=== PATIENT | female | born 1965 | race African-American/Black ===

== ENCOUNTER 2018-03-16 01:22 | Observation (INO) ==
--- NOTE | 2018-03-16 07:25 | P.HP ---
History of Present Illness Service: [facility] Adult med Primary Care Physician: UNKNOWN Chief Complaint: chest pain, palpitation History of Present Illness: 52-year-old relatively healthy [facility] female who was transferred over from [place] facility due to hemoglobin of 6.2 and isolated complaint of chest pressure. Patient reports she has been chronically anemic for years due to bleeding fibroids and actually had 2 episodes of bleeding last week. She become somewhat frustrated by this and she felt she is "old enough to be getting over this kind of thing". She reports that she is received blood transfusions on 2 separate occasions in the past for hemoglobin around 5. She denies any increased fatigue surprisingly and the only reason she went to visit the ER in [place] last night was that she was awakened from sleep with what she describes as a very forceful heartbeat. She reports that it was only a single forceful heartbeat but she had some chest pressure for approximately 10 minutes after that and this caused her to be anxious. She was therefore transported by [facility] to the [place] ER facility. She reports that when she became anxious she felt short of breath for very short time but that has resolved. She has had no more chest pressure or chest pain. She has had similar chest pain in the past but has not had any cardiac workup. Her initial set of enzymes and 2 EKGs are unremarkable. My plan would be to give her blood and continue rule out for any cardiac event. She however at this point is somewhat reluctant to take blood as she says she has done well at much lower numbers in the past. I tried to explain that the extra blood may actually help her heart not have to work as hard and prevent her from having any more of the chest pressure/pain episodes. She is still considering whether or not she will accept any additional blood. She reports that she has had no active bleeding over the last 3-4 days. [facility] Patient lives alone, moved to the area approximately 30 years ago from her home country of [place] Works as a massage therapist Denies any use of alcohol tobacco or illicit drugs Has 3 children - Diagnosis (1) Chest pressure (2) Anemia due to blood loss, chronic (3) Fibroid (bleeding) (uterine) Review of Systems Constitutional: Denies anorexia, Denies body ache(s), Denies chills, Denies daytime sleepiness, Denies excessive sweating, Denies fatigue, Denies fever(s), Denies headache(s), Denies increased appetite, Denies lack of energy, Denies malaise, Denies night sweats, Denies weakness, Denies weight gain, Denies weight loss, Denies other Eyes: Denies blind spots, Denies blurry vision, Denies bulging eyes, Denies change in vision, Denies double vision, Denies discharge, Denies dry eyes, Denies floaters, Denies irritation, Denies itchy eyes, Denies loss of vision, Denies pain, Denies requires corrective lenses, Denies sensitivity to light, Denies other Ears, Nose, Mouth, and Throat: Denies abnormal hearing, Denies bleeding gums, Denies bad breath, Denies change in voice, Denies dental pain, Denies difficulty swallowing, Denies dizziness, Denies dry mouth, Denies ear discharge , Denies ear pain, Denies facial pain, Denies headache(s), Denies hearing loss, Denies hoarseness, Denies lip swelling, Denies nosebleed, Denies mouth lesions, Denies mouth pain, Denies nasal congestion, Denies nasal discharge, Denies nasal obstruction, Denies nasal trauma, Denies neck lump, Denies neck pain, Denies nose pain, Denies pain with swallowing, Denies poor balance, Denies post nasal drip, Denies ringing in the ears, Denies sinus pain, Denies sinus pressure , Denies sore throat, Denies throat swelling, Denies tongue swelling, Denies other Cardiovascular: Reports chest pain, Reports chest pain at rest, Reports rapid, pounding, or irregular heartbeat, Reports shortness of breath, Denies chest pain with activity, Denies excessive sweating, Denies fainting, Denies fast heart rate, Denies foot swelling, Denies generalized swelling, Denies irregular heart rhythm, Denies leg pain with activity, Denies leg sores, Denies leg swelling, Denies lightheadedness, Denies radiating jaw, neck or arm pain, Denies shortness of breath with activity, Denies shortness of breath when lying down, Denies shortness of breath causing sudden awakening, Denies slow heart rate, Denies other Respiratory: Reports shortness of breath, Denies change in phlegm color, Denies chest congestion, Denies cough, Denies coughing up blood, Denies excessive phlegm production, Denies pain on inspiration, Denies pain with cough, Denies shortness of breath with activity, Denies snoring, Denies stridor, Denies wheezing, Denies other Gastrointestinal: Denies abdominal pain, Denies belching, Denies black, tarry stools, Denies bloating, Denies bright, red blood in stools, Denies change in bowel habits, Denies constant urge to pass stool, Denies change in stools, Denies coffee ground vomit, Denies constipation, Denies cramping, Denies difficulty swallowing, Denies excessive passing of gas, Denies feeling full early, Denies heartburn, Denies incontinent of stools, Denies loose stools, Denies nausea, Denies pain with swallowing, Denies vomiting, Denies vomiting blood, Denies other Genitourinary: Reports abnormal vaginal bleeding Musculoskeletal: Denies abnormal walking, Denies back pain, Denies body aches, Denies decreased muscle mass, Denies deformity, Denies joint pain, Denies joint swelling, Denies limited joint movement, Denies loss of height, Denies muscle cramps, Denies muscle weakness, Denies neck pain, Denies numbness, Denies radiating pain into limb, Denies stiffness, Denies tingling, Denies other Neurologic: Denies abnormal hearing, Denies abnormal movements, Denies abnormal speech, Denies abnormal walking, Denies behavioral changes, Denies burning sensations, Denies confusion, Denies dizziness, Denies fainting, Denies frequent falls, Denies headache(s), Denies lack of coordination, Denies localized weakness, Denies loss of vision, Denies memory loss, Denies numbness, Denies other visual disturbances, Denies radiating pain, Denies restless legs, Denies convulsions, Denies seizure-like activity, Denies sensory deficit, Denies tingling, Denies tingling/numbness/burning sensations, Denies tremor(s), Denies unsteadiness, Denies weakness, Denies other Psychiatric: Reports anxiety, Denies abnormal sleep pattern, Denies behavioral changes, Denies change in appetite, Denies change in sex drive, Denies confusion , Denies depression, Denies difficulty concentrating, Denies hearing things others do not hear, Denies hopelessness, Denies irritability, Denies lack of enjoyment, Denies memory loss, Denies mood swings, Denies panic attacks, Denies paranoia, Denies seeing things others do not see, Denies sensing things others do not sense, Denies tactile hallucinations, Denies thoughts of hurting/killing others, Denies thoughts of hurting/killing yourself, Denies other PMFSH - History History Provided By: Patient - Medical History Medical History: Medical History (Last Updated 03/16/18 @ 07:19 by Sandro Lares MD, PhD) Fibroid (bleeding) (uterine) - Surgical History Surgical History: Surgical History (Last Updated 03/16/18 @ 07:17 by Sandro Lares MD, PhD) History of bilateral tubal ligation - Family History Family History: Family History (Last Updated 03/16/18 @ 07:19 by Sandro Lares MD, PhD) Mother Hypertension - Tobacco History Second Hand Smoke Exposure: Yes Smoking Status: Never smoker - Alcohol History How Often Do You Have a Drink Containing Alcohol: Never - Substance Use History Substance History: No History of Abuse - Travel History History of Recent Travel: No Medications and Allergies Active Medications: Active Medications Nitroglycerin (Nitrostat Sl) 0.4 mg SL Q5M PRN PRN Reason: CHEST PAIN Sodium Chloride (Ns Flush) 2 ml IV.FLUSH PRN PRN PRN Reason: FLUSH AFTER USING IV ACCESS Sodium Chloride (Ns Flush) 2 ml IV.FLUSH BID REGINA Allergies Allergy/AdvReac Type Severity Reaction Status Date / Time No Known Allergies Allergy Unverified 03/16/18 01:26 Home Medications Medication Instructions Recorded Confirmed Type ferrous sulfate [iron] 325 mg PO BID 03/16/18 03/16/18 History Exam Vital signs: Vital Signs 03/16/18 05:41 Temperature 97.4 F L Pulse Rate 83 Respiratory Rate 20 Blood Pressure 119/68 Pulse Oximetry 99 Narrative: GENERAL: Sleeping, arouses to voice, alert and oriented. Cooperative with exam. SKIN: Warm and dry. HEAD: Atraumatic. Normocephalic. EYES: Pupils equal and round. No scleral icterus. No injection or drainage. ENT: No nasal bleeding or discharge. Mucous membranes pink and moist. NECK: Trachea midline. No JVD. CARDIOVASCULAR: Regular rate and rhythm. Possible soft 1 out of 6 systolic ejection murmur heard along the left sternal border, surprisingly no loud flow murmur appreciated. RESPIRATORY: No accessory muscle use. Clear to auscultation. Breath sounds equal bilaterally. GASTROINTESTINAL: Abdomen soft, non-tender, nondistended. Hepatic and splenic margins not palpable. Lower abdomen noted for an apparent enlarged uterus with firm nodular lesion consistent with reported fibroid. MUSCULOSKELETAL: Extremities without clubbing, cyanosis, or edema. No obvious deformities. NEUROLOGICAL: Awake and alert. No obvious cranial nerve deficits. Motor grossly within normal limits. Five out of 5 muscle strength in the arms and legs. Normal speech. PSYCHIATRIC: Appropriate mood and affect; insight and judgment normal. Caprini VTE Risk Assessment Caprini VTE Risk Assessment: No/Low Risk (score <= 1) Caprini Risk Assessment Model: Point Value = 1 Point Value = 2 Point Value = 3 Point Value = 5 Age 41-60 Minor surgery BMI > 25 kg/m2 Swollen legs Varicose veins or History of unexplained or recurrent spontaneous Oral contraceptives or hormone replacement Sepsis (< 1 month) Serious lung disease, including pneumonia (< 1 month) Abnormal pulmonary function Acute myocardial infarction Congestive heart failure (< 1 month) History of inflammatory bowel disease Medical patient at bed rest Age 61-74 Arthroscopic surgery Major open surgery (> 45 min) Laparoscopic surgery (> 45 min) Malignancy Confined to bed (> 72 hours) Immobilizing plaster cast Central venous access Age >= 75 History of VTE Family history of VTE Factor V Leiden Prothrombin [id number] Lupus anticoagulant Anticardiolipin antibodies Elevated serum homocysteine Heparin-induced thrombocytopenia Other congenital or acquired thrombophilia Stroke (< 1 month) Elective arthroplasty Hip, pelvis, or leg fracture Acute spinal cord injury (< 1 month) Prophylaxis Regimen: Total Risk Factor Score Risk Level Prophylaxis Regimen 0-1 Low Early ambulation 2 Moderate Order ONE of the following: *Sequential Compression Device (SCD) *Heparin 5000 units SQ BID 3-4 Higher Order ONE of the following medications: *Heparin 5000 units SQ TID *Enoxaparin/Lovenox 40 mg SQ daily (WT < 150 kg, CrCl > 30 mL/min) *Enoxaparin/Lovenox 30 mg SQ daily (WT < 150 kg, CrCl > 10-29 mL/min) *Enoxaparin/Lovenox 30 mg SQ BID (WT < 150 kg, CrCl > 30 mL/min) AND/OR *Sequential Compression Device (SCD) 5 or more Highest Order ONE of the following medications: *Heparin 5000 units SQ TID (Preferred with Epidurals) *Enoxaparin/Lovenox 40 mg SQ daily (WT < 150 kg, CrCl > 30 mL/min) *Enoxaparin/Lovenox 30 mg SQ daily (WT < 150 kg, CrCl > 10-29 mL/min) *Enoxaparin/Lovenox 30 mg SQ BID (WT < 150 kg, CrCl > 30 mL/min) AND *Sequential Compression Device (SCD) Assessment and Plan - Assessment (1) Chest pressure Code(s): R07.89 - Other chest pain Status: Acute Plan: Possibly some demand mediated ischemia or possible dysrhythmia given significant anemia. We will continue rule out protocol. Patient is typically quite active and has no exertional dyspnea or chest pain. I have encouraged her to accept at least 1 unit of packed red cells but at this point she is declining any blood transfusion. She will consider based on repeat hemoglobin and symptomatology. I have tried to explain the need for packed red cells in reducing her cardiac workload. Her EKGs and initial troponin are negative. I am hesitant to give her an aspirin or any other anticoagulant given the recent and recurrent bleeding in light of her somewhat atypical presentation. (2) Anemia due to blood loss, chronic Code(s): D50.0 - Iron deficiency anemia secondary to blood loss (chronic) Status: Chronic Plan: As above. Hemoglobin repeat pending. Hopefully she will except transfusion. Continue home iron. (3) Fibroid (bleeding) (uterine) Code(s): D25.9 - Leiomyoma of uterus, unspecified Status: Chronic Plan: Continue with [facility]. She has an appointment April 06. She has not had any bleeding in the last several days per - Plan Code Status: Full Discussed Condition With: Patient, ER provider and patient's friend, Rod who was at bedside
[2018-03-16 07:31] LABS: Hematocrit 22.1 % (35.0-46.0); Hemoglobin 7.2 gm/dL (11.6-15.3)
[2018-03-16 07:45] LABS: Creatine Kinase 127 U/L (26-192)
--- NOTE | 2018-03-16 08:42 | P.PNADD ---
Addendum to Inpatient Note Reason for Addendum: Additional Documentation Additional information: Again spoke with pt and discussed new lab values. She's had no more CP and still refuses PRBCs. Surprisingly her Hb has actually improved from previous. Will cont r/o protocol and check Ad thal stress test. She is agreeable. Spoke with her nurse and advised to be on look out for next cardiac enzymes and EKG. Will perform stress test if enz/ekg's negative.
[2018-03-16 08:51] VITALS: RESP 17
[2018-03-16] MEDS ORDERED: Ferrous Sulfate 325 MG Tablet PO SCH ×3 (09:00→09:39)
[2018-03-16 10:08] LABS: Creatine Kinase 115 U/L (26-192)
[2018-03-16] MEDS ORDERED: Regadenoson Inj 0.4 MG/5 ML Syringe IV.PUSH ONE (14:33)
[2018-03-16 15:14] VITALS: BP 108/67; PULSE 88; TEMP 97; O2SAT 98
--- NOTE | 2018-03-16 15:26 | NM ---
EXAM DATE: 03/16/2018 3:22 PM EDT AGE/SEX: 52 years / Female INDICATIONS:Angina. . Chest pressure. CLINICAL DATA: This is the patient's initial encounter. Patient reports that signs and symptoms have been present for 1 day and indicates a pain score of 4/10. MEDICAL/SURGICAL HISTORY: Anemia. Tubal ligation. COMPARISON: No prior exams available for comparison. DOSE: 8.1 mCi Tc 99m Myoview at rest 25.9 mCi [id number] at stress 0.4 mg Lexiscan STRESS SYMPTOMS: None. EJECTION FRACTION: >70 % TECHNIQUE: The patient underwent pharmacologic stress with infusion of prescribed dose. Continuous ECG tracing was monitored during stress. Gated SPECT imaging was performed after stress and conventi onal SPECT imaging was performed at rest. The examination was performed on a SPECT/CT scanner, both attenuation and non-corrected datasets were reviewed. FINDINGS: The best perfused myocardium is the lateral wall followed by the inferior wall. There is moderate gut activity obscuring the inferior wall. There is no redistribution to suggest stress-induced ischemia. I see no fixed defects. The ejection fraction greater than 70%. RISK CATEGORY: Low (<1% Annual Motality Rate) CONCLUSION: 1. Negative for stress-induced ischemia Electronically signed by: Antolin Scott MD 03/16/2018 3:25 PM EDT
--- NOTE | 2018-03-16 15:37 | ECG ---
Date Performed: 03/16/2018 Time Performed: 09:35:03 PTAGE: 52 years EKG: Sinus rhythm NORMAL ECG PREVIOUS TRACING : 03/16/2018 06.54 Since the previous tracing, no significant change noted DOCTOR: Irineo Spencer Interpretating Date/Time 03/16/2018 15:36:45
--- NOTE | 2018-03-16 18:08 | ECG ---
Date Performed: 03/16/2018 Time Performed: 06:54:47 PTAGE: 52 years EKG: Sinus rhythm WITH SINUS ARRHYTHMIA NORMAL ECG NO PREVIOUS TRACING DOCTOR: Irineo Spencer Interpretating Date/Time 03/16/2018 18:08:19
== END 2018-03-16 18:15 | disposition home or self-care (01) ==
LOC: PHEDDLT 05:10 → PH3 05:10
PROVIDERS: ADMIT Family Medicine; ATTEND Family Medicine